=== PATIENT | male | born 1950 | race Caucasian/White ===

== ENCOUNTER 2021-02-28 18:46 | Inpatient (IN) | payer MEDICARE, MEDICAID ==
[~2021-02-28] VITALS: Ht 190.5 cm; Wt 127.0 kg
[2021-02-28] MEDS ORDERED: NITROGLYCERIN 0.4MG TABLET SL SL PRN (20:30)
[2021-02-28] MEDS ORDERED: ASPIRIN 325MG TABLET PO ONE (20:30)
[2021-02-28] MEDS ORDERED: ACETAMINOPHEN 325MG TABLET PO ONE (20:30)
[2021-02-28 20:50] LABS: BASOPHILS % 0.9 % (0.0-2.0); EOSINOPHILS % 2.2 % (0.0-5.0); HEMATOCRIT. 44.4 % (42.0-52.0); HEMOGLOBIN. 15.7 g/dL (14.0-18.0); LYMPHOCYTES % 14.2 % (20.0-50.0); MEAN CORPUSCULAR HEMOGLOBIN 35.4 pg (28.0-32.0); MONOCYTES % 10.7 % (2.0-8.0); PLATELET 273 x1000/uL (130-400); RED BLOOD CELL COUNT 4.44 mill/uL (4.7-6.1); RED CELL DISTRIBUTION WIDTH 14.4 % (11.6-14.6)
[2021-02-28 20:59] LABS: CHLORIDE 112 mEq/L (98-107); INR 1.1; PROTHROMBIN TIME 11.5 sec (9.6-11.0)
[2021-02-28 21:04] LABS: ETHANOL BLOOD < 10 mg/dL
[2021-02-28] MEDS ORDERED: IOHEXOL-350 100 ML BOTTLE ONE (22:32)
[2021-02-28] MEDS ORDERED: MAGNESIUM/ALUMINUM HYDROXIDE/SIMETHICONE 30ML UDC PO PRN (23:30)
[2021-02-28] MEDS ORDERED: ACETAMINOPHEN 325MG TABLET PO PRN ×2 (23:30)
[2021-02-28] MEDS ORDERED: IPRATROPIUM/ALBUTEROL 0.5-3(2.5)MG/3ML NEB NEB PRN (23:30)
[2021-02-28] MEDS ORDERED: ONDANSETRON HCL 4MG/2ML INJ IV PRN (23:30)
[2021-02-28] MEDS ORDERED: DOCUSATE SODIUM 100MG CAPSULE PO PRN (23:30)
[2021-02-28] MEDS ORDERED: GUAIFENESIN 200MG/10ML SUGAR FREE UDC PO PRN (23:30)
[2021-02-28] MEDS ORDERED: ENOXAPARIN 40MG/0.4ML SYR SUBCUT SCH (23:30)
[2021-02-28] MEDS ORDERED: ZOLPIDEM TARTRATE 5MG TABLET PO PRN (23:30)
[2021-02-28] MEDS: AMLODIPINE 10MG TABLET PO SCH (23:47)
[2021-03-01] MEDS: CLONIDINE 0.1MG TABLET PO PRN ×2 (00:45→15:31)
[2021-03-01] MEDS: ENOXAPARIN 30MG/0.3ML SYR SUBCUT SCH ×2 (00:45→09:57)
[2021-03-01] MEDS: KETOROLAC 15MG/ML VIAL IV PRN (01:33)
[2021-03-01 05:33] LABS: BASOPHILS % 1.1 % (0.0-2.0); EOSINOPHILS % 3.5 % (0.0-5.0); HEMATOCRIT. 42.6 % (42.0-52.0); HEMOGLOBIN. 14.8 g/dL (14.0-18.0); LYMPHOCYTES % 17.6 % (20.0-50.0); MEAN CORPUSCULAR HEMOGLOBIN 35.2 pg (28.0-32.0); MEAN CORPUSCULAR VOLUME 101.5 fL (80.0-94.0); MEAN PLATELET VOLUME 8.3 fl (7.4-10.4); MONOCYTES % 11.4 % (2.0-8.0); NEUTROPHILS % 66.4 % (40.0-76.0); PLATELET 251 x1000/uL (130-400); RED CELL DISTRIBUTION WIDTH 14.4 % (11.6-14.6)
[2021-03-01 05:41] LABS: CHLORIDE 110 mEq/L (98-107)
[2021-03-01 05:47] LABS: PHOSPHORUS 2.6 mg/dL (2.5-4.9)
[2021-03-01 05:48] LABS: LDL CHOLESTEROL 93 mg/dL (5-100)
[2021-03-01 05:49] LABS: TOTAL IRON BINDING CAPACITY 287 ug/dL (250-450)
[2021-03-01 05:52] LABS: HDL CHOLESTEROL 66 mg/dL (40-59)
[2021-03-01 05:53] LABS: CREATINE KINASE 237 IU/L (39-308); CREATINE KINASE MB FRACTION 3.3 ng/mL (0.5-3.6)
[2021-03-01] MEDS: METOPROLOL TARTRATE 25MG TABLET PO SCH ×2 (09:54→20:44)
[2021-03-01] MEDS: AMLODIPINE 10MG TABLET PO SCH (09:54)
[2021-03-01] MEDS: FAMOTIDINE 20MG TABLET PO SCH ×2 (09:54→20:44)
[2021-03-01] MEDS: ASCORBIC ACID 500 MG TABLET PO SCH ×2 (09:55→20:44)
[2021-03-01] MEDS: LISINOPRIL 20MG TABLET PO SCH ×2 (09:55→20:44)
[2021-03-01] MEDS: ASPIRIN 325MG EC TABLET PO SCH (09:57)
[2021-03-01] MEDS ORDERED: NALOXONE HCL 0.4MG/ML VIAL IV PRN (11:45)
[2021-03-01] MEDS ORDERED: POTASSIUM CHLORIDE 20MEQ/PACKET PO NR (11:45)
[2021-03-01] MEDS: ZINC SULFATE 220 MG ( 50 ) CAPSULE PO SCH (12:24)
[2021-03-01 13:52] LABS: CLARITY URINE CLEAR (CLEAR); COLOR URINE YELLOW (YELLOW); KETONES URINE 1+ (NEGATIVE); LEUKOCYTE ESTERASE URINE TRACE (NEGATIVE); NITRITE URINE NEGATIVE (NEGATIVE); OCCULT BLOOD URINE 3+ (NEGATIVE); PH URINE 6.5 (4.5-8.0); PROTEIN URINE NEGATIVE (NEGATIVE); SPECIFIC GRAVITY URINE 1.016 (1.005-1.030)
[2021-03-01 14:10] LABS: FOLIC ACID (FOLATE) SERUM 11.1 ng/mL (>5.38)
[2021-03-01 14:43] VITALS: BP 158/93
[2021-03-01] MEDS: TRAMADOL 50MG TABLET PO PRN (15:29)
[2021-03-01] MEDS ORDERED: APIX5TAB PO (17:37)
[2021-03-01 18:05] LABS: CREATINE KINASE 309 IU/L (39-308)
[2021-03-01 18:06] LABS: CREATINE KINASE MB FRACTION 4.3 ng/mL (0.5-3.6)
[2021-03-01 20:00] VITALS: BP 115/85
[2021-03-02] VITALS: BP 129/84
[2021-03-02 04:00] VITALS: BP 142/94
[2021-03-02 07:31] LABS: BASOPHILS % 1.3 % (0.0-2.0); EOSINOPHILS % 5.3 % (0.0-5.0); HEMATOCRIT. 41.7 % (42.0-52.0); HEMOGLOBIN. 14.3 g/dL (14.0-18.0); MEAN CORPUSCULAR HEMOGLOBIN 35.4 pg (28.0-32.0); MEAN CORPUSCULAR VOLUME 103.4 fL (80.0-94.0); MEAN PLATELET VOLUME 8.6 fl (7.4-10.4); MONOCYTES % 14.3 % (2.0-8.0); NEUTROPHILS % 62.1 % (40.0-76.0); PLATELET 235 x1000/uL (130-400); RED BLOOD CELL COUNT 4.03 mill/uL (4.7-6.1); RED CELL DISTRIBUTION WIDTH 14.2 % (11.6-14.6)
[2021-03-02 07:38] LABS: CHLORIDE 110 mEq/L (98-107)
[2021-03-02 08:00] VITALS: BP 154/92
[2021-03-02] MEDS: TRAMADOL 50MG TABLET PO PRN (09:25)
[2021-03-02] MEDS: METOPROLOL TARTRATE 25MG TABLET PO SCH ×2 (09:25→22:09)
[2021-03-02] MEDS: ASCORBIC ACID 500 MG TABLET PO SCH ×2 (09:25→22:09)
[2021-03-02] MEDS: LISINOPRIL 20MG TABLET PO SCH ×2 (09:25→22:09)
[2021-03-02] MEDS: ZINC SULFATE 220 MG ( 50 ) CAPSULE PO SCH (09:25)
[2021-03-02] MEDS: AMLODIPINE 10MG TABLET PO SCH (09:25)
[2021-03-02] MEDS: FAMOTIDINE 20MG TABLET PO SCH ×2 (09:25→22:09)
[2021-03-02] MEDS: ASPIRIN 325MG EC TABLET PO SCH (09:27)
[2021-03-02] MEDS: NITROGLYCERIN 0.4MG TABLET SL SL PRN ×2 (11:58→17:51)
[2021-03-02 12:00] VITALS: BP 124/83
[2021-03-02 16:00] VITALS: BP 162/94
[2021-03-02 16:22] LABS: *AMPHETAMINES SCREEN URINE NEGATIVE (NEGATIVE); CANNABINOID URINE SCREEN PRESUMTIVE POSITIVE (NEGATIVE); OPIATES URINE SCREEN NEGATIVE (NEGATIVE); PHENCYCLIDINE URINE SCREEN NEGATIVE (NEGATIVE)
[2021-03-02 16:23] LABS: *BARBITURATES SCREEN URINE NEGATIVE (NEGATIVE); *BENZODIAZEPINES SCREEN URINE NEGATIVE (NEGATIVE); *COCAINE SCREEN URINE NEGATIVE (NEGATIVE); METHADONE URINE SCREEN NEGATIVE (NEGATIVE)
[2021-03-02] MEDS: CLONIDINE 0.1MG TABLET PO PRN (17:52)
[2021-03-02 20:00] VITALS: BP 176/103
[2021-03-03] VITALS (7 sets, daily range): BP systolic 93–149; BP diastolic 64–83
[2021-03-03] MEDS: ASCORBIC ACID 500 MG TABLET PO SCH ×2 (08:45→21:08)
[2021-03-03] MEDS: ZINC SULFATE 220 MG ( 50 ) CAPSULE PO SCH (08:46)
[2021-03-03] MEDS: AMLODIPINE 10MG TABLET PO SCH (08:47)
[2021-03-03] MEDS: LISINOPRIL 20MG TABLET PO SCH ×2 (08:47→21:09)
[2021-03-03] MEDS: FAMOTIDINE 20MG TABLET PO SCH ×2 (08:47→21:08)
[2021-03-03] MEDS: ASPIRIN 325MG EC TABLET PO SCH (08:48)
[2021-03-03] MEDS: CLONIDINE 0.1MG TABLET PO PRN (08:48)
[2021-03-03] MEDS: METOPROLOL TARTRATE 25MG TABLET PO SCH ×2 (08:48→21:00)
[2021-03-03] MEDS: CLONIDINE 0.1MG TABLET PO SCH ×2 (15:35→21:09)
[2021-03-03] MEDS: KETOROLAC 15MG/ML VIAL IV PRN (15:36)
[2021-03-04 04:03] VITALS: BP 114/60
[2021-03-04] MEDS: CLONIDINE 0.1MG TABLET PO SCH ×3 (05:59→21:27)
[2021-03-04 08:00] VITALS: BP 127/81
[2021-03-04] MEDS: METOPROLOL TARTRATE 25MG TABLET PO SCH ×2 (08:49→20:23)
[2021-03-04] MEDS: ASCORBIC ACID 500 MG TABLET PO SCH ×2 (08:50→20:22)
[2021-03-04] MEDS: ZINC SULFATE 220 MG ( 50 ) CAPSULE PO SCH (08:50)
[2021-03-04] MEDS: LISINOPRIL 20MG TABLET PO SCH ×2 (08:50→20:23)
[2021-03-04] MEDS: FAMOTIDINE 20MG TABLET PO SCH ×2 (08:51→20:22)
[2021-03-04] MEDS: AMLODIPINE 10MG TABLET PO SCH (08:51)
[2021-03-04] MEDS: ASPIRIN 325MG EC TABLET PO SCH (08:53)
[2021-03-04] MEDS ORDERED: NITROGLYCERIN SPRAY/4.9GM CAN TL NR (10:30)
[2021-03-04] MEDS ORDERED: IOHEXOL-350 100 ML BOTTLE ONE (11:22)
[2021-03-04 12:00] VITALS: BP 176/88
[2021-03-04 16:00] VITALS: BP 116/78
[2021-03-04 20:00] VITALS: BP 148/82
[2021-03-05] VITALS: BP 133/86
[2021-03-05 04:00] VITALS: BP 143/88
[2021-03-05] MEDS: CLONIDINE 0.1MG TABLET PO SCH ×2 (05:45→13:54)
[2021-03-05 08:00] VITALS: BP 133/73
[2021-03-05] MEDS: ZINC SULFATE 220 MG ( 50 ) CAPSULE PO SCH (08:04)
[2021-03-05] MEDS: FAMOTIDINE 20MG TABLET PO SCH (08:04)
[2021-03-05] MEDS: ASCORBIC ACID 500 MG TABLET PO SCH (08:04)
[2021-03-05] MEDS: LISINOPRIL 20MG TABLET PO SCH (08:04)
[2021-03-05] MEDS: AMLODIPINE 10MG TABLET PO SCH (08:05)
[2021-03-05] MEDS: METOPROLOL TARTRATE 25MG TABLET PO SCH (08:05)
[2021-03-05] MEDS ORDERED: LISI20TA31 PO (10:32)
[2021-03-05 10:41] VITALS: BP 133/73
[2021-03-05 12:00] VITALS: BP 122/71
[2021-03-05] MEDS: ASPIRIN 325MG EC TABLET PO SCH (13:55)
== END 2021-03-05 14:33 | disposition home or self-care (01) | DRG 205 ==
LOC: ER 18:46 → MICUSO 03-01 02:44 → 8WST 03-01 13:20
PROVIDERS: ADMIT Psychiatry & Neurology Neurology; ATTEND Internal Medicine
DX: M94.0 Chondrocostal junction syndrome [Tietze] (principal); I50.33 Acute on chronic diastolic (congestive) heart failure; I16.1 Hypertensive emergency; E66.01 Morbid (severe) obesity due to excess calories; E83.51 Hypocalcemia; Z20.822 Contact with and (suspected) exposure to COVID-19; I11.0 Hypertensive heart disease with heart failure; R31.9 Hematuria, unspecified; I25.10 Atherosclerotic heart disease of native coronary artery without angina pectoris; Z86.711 Personal history of pulmonary embolism; Z68.35 Body mass index [BMI] 35.0-35.9, adult
CPT/HCPCS: 36415; 71045; 71275; 75571; 76770; 80053; 80061; 80305; 80320; 81003; 82550; 82553; 82607; 82746; 83036; 83540; 83550; 83735; 83880; 84100; 84484; 85025; 87426; 93005; 93306; 93970; 99285; J1650; J1885; Q9967; G0480

== ENCOUNTER 2022-02-24 19:53 | Inpatient (IN) | payer MEDICARE, MEDICAID ==
[~2022-02-24] VITALS: Ht 190.5 cm; Wt 112.8 kg
[~2022-02-24 19:53] MED LIST: APIX5TAB PO; LISI20TA31 PO
[2022-02-24 21:36] LABS: EOSINOPHILS % 0.3 % (0.0-5.0); HEMATOCRIT. 47.1 % (42.0-52.0); HEMOGLOBIN. 15.3 g/dL (14.0-18.0); LYMPHOCYTES % 23.4 % (20.0-50.0); MEAN CORPUSCULAR VOLUME 89.1 fL (80.0-94.0); MEAN PLATELET VOLUME 7.2 fl (7.4-10.4); MONOCYTES % 12.7 % (2.0-8.0); NEUTROPHILS % 62.6 % (40.0-76.0); PLATELET 356 x1000/uL (130-400); RED BLOOD CELL COUNT 5.28 mill/uL (4.7-6.1); RED CELL DISTRIBUTION WIDTH 20.2 % (11.6-14.6)
[2022-02-24 21:44] LABS: CHLORIDE 105 mEq/L (98-107)
[2022-02-24] MEDS ORDERED: NITROGLYCERIN 0.4MG TABLET SL SL ONE (22:45)
[2022-02-24] MEDS ORDERED: ONDANSETRON HCL 4MG/2ML INJ IV ONE (23:45)
[2022-02-25] MEDS ORDERED: CLONIDINE 0.1MG TABLET PO PRN (04:00)
[2022-02-25] MEDS ORDERED: HYDROCODONE/ACETAMINOPHEN 5/325MG TABLET PO PRN (04:00)
[2022-02-25] MEDS ORDERED: ACETAMINOPHEN 325MG TABLET PO PRN ×2 (04:00)
[2022-02-25] MEDS ORDERED: DOCUSATE SODIUM 100MG CAPSULE PO PRN (04:00)
[2022-02-25] MEDS ORDERED: MORPHINE SULFATE 2 MG/ML CPJ (NOT FOR IM USE) IV PRN (04:00)
[2022-02-25] MEDS ORDERED: GUAIFENESIN 200MG/10ML SUGAR FREE UDC PO PRN (04:00)
[2022-02-25] MEDS ORDERED: ACETAMINOPHEN 650MG SUPP PR PRN ×2 (04:00)
[2022-02-25] MEDS ORDERED: MAGNESIUM/ALUMINUM HYDROXIDE/SIMETHICONE 30ML UDC PO PRN (04:00)
[2022-02-25] MEDS ORDERED: NALOXONE HCL 0.4MG/ML VIAL IV PRN (05:00)
[2022-02-25] MEDS: ONDANSETRON HCL 4MG/2ML INJ IV PRN ×2 (05:08→16:19)
[2022-02-25] MEDS: HYDROCODONE/ACETAMINOPHEN 5/325MG TABLET PO PRN ×3 (05:09→16:20)
[2022-02-25 09:30] VITALS: BP 153/103
[2022-02-25] MEDS ORDERED: METO25TA6 MT (10:28)
[2022-02-25] MEDS ORDERED: POTASSIUM CHLORIDE 20MEQ TABLET SR PO SCH (11:00)
[2022-02-25] MEDS ORDERED: DIAZEPAM 5 MG TABLET PO PRN (11:00)
[2022-02-25 11:35] VITALS: BP 168/88
[2022-02-25] MEDS: LORAZEPAM 0.5MG TABLET PO PRN (11:38)
[2022-02-25] MEDS: AMLODIPINE 5MG TABLET PO SCH ×2 (11:38→16:20)
[2022-02-25] MEDS: ASPIRIN 81MG TABLET PO SCH (11:38)
[2022-02-25] MEDS: ENOXAPARIN 30MG/0.3ML SYR SUBCUT SCH ×2 (11:39→22:28)
[2022-02-25] MEDS: CHLORDIAZEPOXIDE 25MG CAPSULE PO SCH ×2 (13:36→22:29)
[2022-02-25 16:00] VITALS: BP 144/84
[2022-02-25 16:23] LABS: *AMPHETAMINES SCREEN URINE NEGATIVE (NEGATIVE); *BARBITURATES SCREEN URINE NEGATIVE (NEGATIVE); *BENZODIAZEPINES SCREEN URINE NEGATIVE (NEGATIVE); *COCAINE SCREEN URINE NEGATIVE (NEGATIVE); CANNABINOID URINE SCREEN PRESUMTIVE POSITIVE (NEGATIVE); METHADONE URINE SCREEN NEGATIVE (NEGATIVE); OPIATES URINE SCREEN PRESUMTIVE POSITIVE (NEGATIVE); PHENCYCLIDINE URINE SCREEN NEGATIVE (NEGATIVE)
[2022-02-25 16:28] LABS: HEMATOCRIT. 42.3 % (42.0-52.0); HEMOGLOBIN. 13.9 g/dL (14.0-18.0); MEAN CORPUSCULAR HEMOGLOBIN 28.9 pg (28.0-32.0); MEAN CORPUSCULAR VOLUME 87.8 fL (80.0-94.0); MEAN PLATELET VOLUME 7.8 fl (7.4-10.4); PLATELET 282 x1000/uL (130-400); RED BLOOD CELL COUNT 4.82 mill/uL (4.7-6.1); RED CELL DISTRIBUTION WIDTH 20.5 % (11.6-14.6)
[2022-02-25 16:44] LABS: CHLORIDE 100 mEq/L (98-107)
[2022-02-25 16:57] LABS: ETHANOL BLOOD < 10 mg/dL
[2022-02-25 17:02] LABS: HEPATITIS B SURFACE ANTIGEN NEGATIVE
[2022-02-25 17:06] LABS: CREATINE KINASE 302 IU/L (39-308); HDL CHOLESTEROL 88 mg/dL (40-59); LDL CHOLESTEROL 75 mg/dL (5-100)
[2022-02-25 17:45] LABS: PLATELET ESTIMATE NORMAL
[2022-02-25] MEDS ORDERED: NITR0.4T49 SL (18:49)
[2022-02-25] MEDS ORDERED: ISOS20TA8 PO (18:49)
[2022-02-25] MEDS ORDERED: TIOT18CA3 INH (18:49)
[2022-02-25 20:00] VITALS: BP 129/81
[2022-02-26] VITALS: BP 134/92
[2022-02-26 04:00] VITALS: BP 147/95
[2022-02-26] MEDS: CHLORDIAZEPOXIDE 25MG CAPSULE PO SCH ×3 (06:45→22:05)
[2022-02-26] MEDS: HYDROCODONE/ACETAMINOPHEN 5/325MG TABLET PO PRN ×4 (06:48→22:30)
[2022-02-26 07:23] LABS: BASOPHILS % 0.3 % (0.0-2.0); EOSINOPHILS % 0.4 % (0.0-5.0); HEMATOCRIT. 41.4 % (42.0-52.0); HEMOGLOBIN. 13.7 g/dL (14.0-18.0); LYMPHOCYTES % 10.6 % (20.0-50.0); MEAN CORPUSCULAR HEMOGLOBIN 29.3 pg (28.0-32.0); MEAN CORPUSCULAR VOLUME 88.3 fL (80.0-94.0); MEAN PLATELET VOLUME 7.8 fl (7.4-10.4); MONOCYTES % 12.9 % (2.0-8.0); NEUTROPHILS % 75.8 % (40.0-76.0); PLATELET 213 x1000/uL (130-400); RED BLOOD CELL COUNT 4.69 mill/uL (4.7-6.1); RED CELL DISTRIBUTION WIDTH 20.6 % (11.6-14.6)
[2022-02-26 07:32] LABS: CHLORIDE 102 mEq/L (98-107)
[2022-02-26 08:00] VITALS: BP 139/79
[2022-02-26] MEDS: ENOXAPARIN 30MG/0.3ML SYR SUBCUT SCH ×2 (09:12→20:26)
[2022-02-26] MEDS: ASPIRIN 81MG TABLET PO SCH (09:12)
[2022-02-26] MEDS: ONDANSETRON HCL 4MG/2ML INJ IV PRN (09:12)
[2022-02-26] MEDS: AMLODIPINE 5MG TABLET PO SCH ×2 (09:12→17:33)
[2022-02-26] MEDS: LORAZEPAM 0.5MG TABLET PO PRN (09:14)
[2022-02-26] MEDS ORDERED: DIAZEPAM 5 MG TABLET PO SCH (11:30)
[2022-02-26 12:00] VITALS: BP 130/81
[2022-02-26] MEDS ORDERED: MORPHINE SULFATE 4 MG/ML CPJ (NOT FOR IM USE) IV SCH (12:00)
[2022-02-26] MEDS: LIDOCAINE 5% PATCH TOP SCH (13:12)
[2022-02-26 16:00] VITALS: BP 126/89
[2022-02-26 20:00] VITALS: BP 138/87
[2022-02-27 08:00] VITALS: BP 124/83
[2022-02-27] MEDS ORDERED: REGADENOSON 0.4 MG/5 ML IV SCH (08:30)
[2022-02-27 12:00] VITALS: BP 141/87
[2022-02-27 12:23] LABS: CHLORIDE 102 mEq/L (98-107)
[2022-02-27] MEDS: ASPIRIN 81MG TABLET PO SCH (12:31)
[2022-02-27] MEDS: AMLODIPINE 5MG TABLET PO SCH ×2 (12:31→17:43)
[2022-02-27] MEDS: ENOXAPARIN 30MG/0.3ML SYR SUBCUT SCH ×2 (12:32→21:05)
[2022-02-27] MEDS: LIDOCAINE 5% PATCH TOP SCH (12:34)
[2022-02-27 12:38] LABS: BASOPHILS % 0.9 % (0.0-2.0); EOSINOPHILS % 1.8 % (0.0-5.0); HEMATOCRIT. 37.2 % (42.0-52.0); HEMOGLOBIN. 12.4 g/dL (14.0-18.0); LYMPHOCYTES % 19.7 % (20.0-50.0); MEAN CORPUSCULAR HEMOGLOBIN 29.5 pg (28.0-32.0); MEAN CORPUSCULAR VOLUME 88.4 fL (80.0-94.0); MEAN PLATELET VOLUME 8.2 fl (7.4-10.4); MONOCYTES % 13.5 % (2.0-8.0); NEUTROPHILS % 64.1 % (40.0-76.0); PLATELET 171 x1000/uL (130-400); RED BLOOD CELL COUNT 4.21 mill/uL (4.7-6.1); RED CELL DISTRIBUTION WIDTH 20.1 % (11.6-14.6)
[2022-02-27] MEDS: CHLORDIAZEPOXIDE 25MG CAPSULE PO SCH ×3 (14:00→21:05)
[2022-02-27] MEDS ORDERED: IOHEXOL-350 100 ML BOTTLE ONE (15:25)
[2022-02-27 16:00] VITALS: BP 134/84
[2022-02-27] MEDS ORDERED: THIA100T88 MT (19:44)
[2022-02-27] MEDS ORDERED: OMEP40CA20 MT (19:44)
[2022-02-27 20:00] VITALS: BP 114/77
[2022-02-27 23:34] VITALS: BP 112/68
[2022-02-28 04:00] VITALS: BP 111/67
[2022-02-28] MEDS: CHLORDIAZEPOXIDE 25MG CAPSULE PO SCH (06:11)
[2022-02-28 08:02] VITALS: BP_SYST 130; BP_SYST 138; BP_DIAS 63; BP_DIAS 92
[2022-02-28] MEDS: ASPIRIN 81MG TABLET PO SCH (08:49)
[2022-02-28] MEDS: AMLODIPINE 5MG TABLET PO SCH (08:49)
[2022-02-28] MEDS: ENOXAPARIN 30MG/0.3ML SYR SUBCUT SCH (08:49)
[2022-02-28] MEDS: LIDOCAINE 5% PATCH TOP SCH (08:50)
[2022-02-28 11:41] VITALS: BP 145/85
[2022-02-28 12:00] VITALS: BP 145/85
== END 2022-02-28 14:50 | disposition home health service (06) | DRG 206 ==
LOC: ER 19:53 → MICUSO 23:19 → 6WST 02-25 09:50
PROVIDERS: ADMIT Family Medicine Adult Medicine; ATTEND Family Medicine Adult Medicine
PROC: 4A02XM4 Measurement of Cardiac Total Activity, External Approach (ICD-10-PCS; principal; 2022-02-27)
PROC: 3E033HZ Introduction of Radioactive Substance into Peripheral Vein, Percutaneous Approach (ICD-10-PCS; 2022-02-27)
DX: M94.0 Chondrocostal junction syndrome [Tietze] (principal); E87.6 Hypokalemia; I10 Essential (primary) hypertension; J44.9 Chronic obstructive pulmonary disease, unspecified; Z20.822 Contact with and (suspected) exposure to COVID-19; I25.10 Atherosclerotic heart disease of native coronary artery without angina pectoris; R74.01 Elevation of levels of liver transaminase levels; F10.10 Alcohol abuse, uncomplicated; F12.10 Cannabis abuse, uncomplicated; Z79.899 Other long term (current) drug therapy; Z86.711 Personal history of pulmonary embolism; E86.0 Dehydration
CPT/HCPCS: 36415; 71045; 71275; 76604; 78452; 80048; 80053; 80061; 80305; 80320; 82550; 82962; 83735; 83880; 84443; 84484; 85025; 85379; 85651; 86141; 86705; 86709; 86803; 87340; 87426; 93005; 93017; 93306; 93880; 93970; 97162; 97166; 97535; 99285; A9500; J1650; J2270; J2405; J2785; Q9967; G0480